=== PATIENT | female | born 1980 | race Caucasian/White ===

== ENCOUNTER → 2017-05-03 | Outpatient (CLI) | payer OTHER | LOC: BMCIMAGING 11:16 | PROVIDERS: ATTEND Physician Assistant Medical | DX: M53.86 Other specified dorsopathies, lumbar region (principal) ==

== ENCOUNTER 2017-05-31 19:06 | Emergency (ER) | payer OTHER ==
[2017-05-31 19:21] VITALS: BP 136/87; PULSE 93; RESP 16; TEMP 98.4; O2SAT 94
[2017-05-31] MEDS ORDERED: TDAP ADULT 0.5 ML INJ (BOOSTRIX) IM ONE (19:25)
--- NOTE | 2017-05-31 19:42 | EDPHY ---
H & P Time Seen by Provider: 05/31/17 19:19 HPI/ROS: HPI Laceration to right hand. 28-year-old female she is right-hand dominant. She was opening a can when she accidentally cut the web space between her ventral aspect thumb and 2nd digit with the edge of a can lid. She sustained a small laceration which has been persistently bleeding to this area. She does not remember when her last tetanus shot was. No other injury or complaint. No distal numbness, loss of sensation or loss of function in her digits. ROS: Constitutional: No fever, no chills. No weakness. Musculoskeletal: As above. Skin: Laceration as above. Neurological: No focal weakness or altered sensation. Past medical history: Migraine headaches. Compression fractures in back. Social history: Nonsmoker. Here by herself. Physical Exam: General Appearance: Alert, no distress. This patient is responding to questions appropriately and in full sentences. This patient appears well- hydrated and well-nourished. Eyes: Pupils equal and round no pallor or injection. No lid edema, erythema or injection. Right hand exam: She has a linear, half a cm at most laceration ventral aspect webspace between the thumb and the index finger. No joint involvement. No tendon involvement. The right hand is neurovascularly intact in completely functional. Please see wound care note for further details. Neurological: Motor sensory function is grossly intact. Cranial nerves are normal. Gait is normal. Skin: Warm and dry, no rashes. As above. Extremities are symmetrical. All joints range without pain or impingement. Psychiatric: No agitation. No depression. Database: EKG: Imaging: Procedures: Procedure: Laceration repair. Verbal consent was obtained from the patient. The 1/2 cm laceration on the webspace between the thumb and the index finger was anesthetized in the usual fashion. The wound was irrigated, draped and explored to its base with a gloved finger. There were no deep structures involved. No tendon injury was identified. No foreign body was identified. The wound was repaired with 1, 5.0 Prolene suture. The wound repair was tolerated well and there were no complications. The procedure was performed by myself. Emergency department course: 7:40 p.m., after suture repair wound care was discussed with the patient. Follow-up and suture removal reviewed. Return to emergency department precautions discussed. All of her questions were answered. She was given a tetanus vaccination. She was discharged in good condition. Differential Diagnosis: The differential diagnosis on this patient includes but is not limited to laceration to webspace of right hand. Tendon injury, significant neurovascular injury, retained foreign body unlikely. This represents a partial list of diagnoses considered. These considerations are based on history, physical exam , past history, reassessment and diagnostic testing. Smoking Status: Never smoked Constitutional: Initial Vital Signs Temperature (C) 36.9 C 05/31/17 19:19 Heart Rate 93 05/31/17 19:19 Respiratory Rate 16 05/31/17 19:19 Blood Pressure 136/87 H 05/31/17 19:19 O2 Sat (%) 94 05/31/17 19:19 O2 Delivery Mode Room Air Allergies/Adverse Reactions: No Known Allergies Allergy (Unverified 05/31/17 19:18) Home Medications: Medication Instructions Recorded Control 02/03/16 Departure - Departure Disposition: Home, Routine, Self-Care Clinical Impression: Laceration of right hand Condition: Good Instructions: Laceration (ED), Care For Your Stitches (ED) Additional Instructions: Read and follow provided instructions. Sutures to be removed in 10 days. This can be done here. Follow-up with your primary care physician in 1-2 days for re-evaluation as needed only. Ibuprofen dosin mg every 6 hours with meals for the next 3 days only. Return to the emergency department for bleeding, significant pain, loss of sensation or weakness in hand, swelling, redness or other serious concerns. Referrals: NONE *PRIMARY CARE P,. [Primary Care Provider] - As per Instructions
== END 2017-05-31 19:49 | disposition home or self-care (01) ==
LOC: CED 19:06
PROC: 0HQFXZZ Repair Right Hand Skin, External Approach (ICD-10-PCS; principal; 2017-05-31)
DX: S61.411A Laceration without foreign body of right hand, initial encounter (principal); Z23 Encounter for immunization; W45.8XXA Other foreign body or object entering through skin, initial encounter